=== PATIENT | male | born 1965 | race Caucasian/White ===

== ENCOUNTER 2024-11-07 18:23 | Emergency (ER) | payer BC ==
[~2024-11-07] VITALS: Ht 175.3 cm; Wt 91.0 kg
[2024-11-07 18:32] VITALS: O2SAT 99
[2024-11-07 20:15] LABS: PLATELET 193 x1000/uL (130-400); RED BLOOD CELL COUNT 4.15 mill/uL (4.7-6.1); RED CELL DISTRIBUTION WIDTH 13.1 % (11.6-14.6)
[2024-11-07 20:26] LABS: INR 1.0
[2024-11-07 20:30] LABS: CREATININE 1.1 mg/dL (0.6-1.3)
[2024-11-07 20:31] LABS: UREA NITROGEN BLOOD 17 mg/dL (9-23)
[2024-11-07 23:11] VITALS: BP 115/68; PULSE 70; RESP 18; O2SAT 98
== END 2024-11-07 23:16 | disposition home or self-care (01) ==
LOC: ER 18:23
DX: R04.0 Epistaxis (principal); Z95.5 Presence of coronary angioplasty implant and graft; Z98.890 Other specified postprocedural states
CPT/HCPCS: 80048; 83605; 85027; 85610; 85730; 36415; 99283; Z7610; A4606